=== PATIENT | female | born 1955 | race Caucasian/White ===

== ENCOUNTER 2024-02-28 17:57 | Inpatient (IN) | payer OTHER ==
[~2024-02-28] VITALS: Ht 160 cm; Wt 52.2 kg
[2024-02-28 18:05] VITALS: BP_SYST 104; PULSE 97; RESP 18; TEMP 98.3; O2SAT 98
[2024-02-28 19:46] LABS: BASOPHILS # (AUTO) 0.1 K/uL (0.0-0.2); BASOPHILS % (AUTO) 0.6 % (0.0-2.0); EOSINOPHILS # (AUTO) 0.2 K/uL (0.0-0.4); EOSINOPHILS % (AUTO) 2.8 % (0.0-4.0); HEMATOCRIT 22.3 % (36-48); HEMOGLOBIN 7.7 g/dL (12.0-16.0); LYMPHOCYTES # (AUTO) 2.3 K/uL (1.0-5.5); MEAN CORPUSCULAR HEMOGLOBIN 32 pg (27-31); MEAN CORPUSCULAR HGB CONC 35 % (32-36); MEAN CORPUSCULAR VOLUME 93 fL (79.0-98.0); MONOCYTES # (AUTO) 0.8 K/uL (0.0-1.0); MONOCYTES % (AUTO) 9.1 % (1.7-9.3); NEUTROPHILS # (AUTO) 5.4 K/uL (1.8-7.7); NEUTROPHILS % (AUTO) 61.5 % (40.0-70.0); PLATELET COUNT (AUTO) 347 K/uL (130-430); RED BLOOD CELL COUNT(AUTO) 2.39 MIL/uL (4.2-6.2); RED CELL DISTRIBUTION WIDTH 13.4 % (9.0-15.0); WHITE BLOOD COUNT (AUTO) 8.8 K/uL (4.8-10.8)
[2024-02-28 19:53] LABS: CALCIUM 9.8 mg/dL (8.4-11.0); CREATININE 2.39 mg/dL (0.55-1.30)
[2024-02-28 20:02] LABS: POTASSIUM 6.7 mmol/L (3.5-5.1)
[2024-02-28] MEDS ORDERED: LR 1,000 ML IV ONE (20:15)
[2024-02-28] MEDS ORDERED: SODIUM BICARBONATE 8.4% JECT 150 MEQ in D5W 1,000 ML IVP SCH (20:15)
[2024-02-28] MEDS ORDERED: SODIUM BICARBONATE 8.4% JECT 50 MEQ/50 ML SYRINGE ONE (20:32)
[2024-02-28] MEDS ORDERED: HYDROcodone/ACETAMIN 10-325 MG TAB PO PRN (20:45)
[2024-02-28] MEDS ORDERED: ONDANSETRON HCL 4 MG/2 ML VIAL IVP PRN (20:45)
[2024-02-28] MEDS ORDERED: ACETAMINOPHEN 325 MG TABLET PO PRN ×2 (20:45)
[2024-02-28] MEDS ORDERED: SODIUM BICARBONATE 8.4% JECT 50 MEQ in 0.45% NACL 1,000 ML IVP SCH (20:45)
[2024-02-28] MEDS ORDERED: HYDROcodone/ACETAMIN 5-325 MG TAB (NORCO/ VICODIN) PO PRN (20:45)
[2024-02-28] MEDS: traZODone HCL 50 MG TABLET (DESYREL) PO SCH (21:00)
[2024-02-28] MEDS ORDERED: LORazepam 1 MG TABLET PO PRN (21:00)
[2024-02-28] MEDS: DEXTROSE 50% JECT 50 ML DISP.SYRIN IVP ONE (21:00)
[2024-02-28] MEDS: ATORVASTATIN 20 MG TABLET PO SCH (21:00)
[2024-02-28] MEDS: INSULIN REGULAR, HUMAN 10 UNITS/0.1 ML, 3 ML VIAL IVP ONE (21:09)
[2024-02-28] MEDS: DOCUSATE SODIUM 100 MG CAPSULE PO SCH (21:32)
[2024-02-28] MEDS: SODIUM ZIRCONIUM CYCLOSILICATE 10 GM POWD.PACK PO ONE (21:33)
[2024-02-28] MEDS: SODIUM BICARBONATE 8.4% JECT 50 MEQ in 0.45% NACL 1,000 ML IVP SCH (22:00)
[2024-02-28] MEDS: METOCLOPRAMIDE HCL 10 MG/2 ML VIAL IVP SCH (22:01)
[2024-02-29] VITALS (7 sets, daily range): BP systolic 110–123; PULSE 80–95; RESP 16–20; TEMP 97.3–98.2; O2SAT 97–100
[2024-02-29] MEDS ORDERED: AMLO10TA88 PO (00:36)
[2024-02-29] MEDS ORDERED: ASPI-1393 PO (00:36)
[2024-02-29] MEDS ORDERED: CYCL10TA24 PO (00:36)
[2024-02-29] MEDS ORDERED: LORA-258 PO (00:36)
[2024-02-29] MEDS ORDERED: LISI10TA29 PO (00:36)
[2024-02-29] MEDS ORDERED: MEGE400O6 PO (00:36)
[2024-02-29] MEDS ORDERED: DIVA-74 PO (00:36)
[2024-02-29] MEDS ORDERED: FAMO40TA7 PO (00:36)
[2024-02-29] MEDS ORDERED: ARIP5TAB10 PO (00:36)
[2024-02-29] MEDS ORDERED: FERR325T30 PO (00:36)
[2024-02-29] MEDS ORDERED: TRAZ-251 PO (00:38)
[2024-02-29 09:43] LABS: BASOPHILS # (AUTO) 0.1 K/uL (0.0-0.2); BASOPHILS % (AUTO) 0.5 % (0.0-2.0); EOSINOPHILS # (AUTO) 0.3 K/uL (0.0-0.4); EOSINOPHILS % (AUTO) 2.7 % (0.0-4.0); HEMATOCRIT 22.5 % (36-48); HEMOGLOBIN 7.7 g/dL (12.0-16.0); LYMPHOCYTES # (AUTO) 2.3 K/uL (1.0-5.5); LYMPHOCYTES % (AUTO) 24.3 % (20.5-51.5); MEAN CORPUSCULAR HEMOGLOBIN 32 pg (27-31); MEAN CORPUSCULAR HGB CONC 34 % (32-36); MEAN CORPUSCULAR VOLUME 93 fL (79.0-98.0); MONOCYTES # (AUTO) 0.8 K/uL (0.0-1.0); MONOCYTES % (AUTO) 8.4 % (1.7-9.3); NEUTROPHILS # (AUTO) 6.1 K/uL (1.8-7.7); NEUTROPHILS % (AUTO) 64.1 % (40.0-70.0); PLATELET COUNT (AUTO) 374 K/uL (130-430); RED BLOOD CELL COUNT(AUTO) 2.41 MIL/uL (4.2-6.2); RED CELL DISTRIBUTION WIDTH 13.2 % (9.0-15.0); WHITE BLOOD COUNT (AUTO) 9.5 K/uL (4.8-10.8)
[2024-02-29 09:53] LABS: PROTHROMBIN TIME 10.5 SECS (9.5-12.5)
[2024-02-29 09:54] LABS: TOTAL IRON BIND. CAPACITY 285 ug/dL (250-450)
[2024-02-29 10:06] LABS: ALBUMIN 3.3 g/dL (3.4-4.8); CALCIUM 9.7 mg/dL (8.4-11.0); CREATININE 2.1 mg/dL (0.55-1.30); POTASSIUM 5.5 mmol/L (3.5-5.1); THYROID STIMULATING HORMONE 3.4 uIu/mL (0.36-3.74); TOTAL BILIRUBIN 0.2 mg/dL (0.0-1.0); TOTAL PROTEIN, SERUM 6.9 g/dL (6.4-8.3)
[2024-02-29] MEDS: DULoxetine HCL 30 MG CAPSULE.DR (CYMBALTA) PO SCH (10:08)
[2024-02-29 10:11] LABS: HEMOGLOBIN A1C 4.64 % (<5.7)
[2024-02-29] MEDS ORDERED: ARIP2TAB20 PO (11:15)
[2024-02-29] MEDS: PANTOPRAZOLE SODIUM 40 MG/VIAL (PROTONIX) IVP ONE (16:53)
[2024-02-29] MEDS: traZODone HCL 50 MG TABLET (DESYREL) PO SCH (20:11)
[2024-02-29] MEDS: VALPROIC ACID ORAL SYRUP 250 MG/5 ML UDC PO SCH (20:18)
[2024-02-29] MEDS ORDERED: VALPROATE SODIUM 500 MG in D5W 100 ML IV SCH (21:00)
[2024-02-29] MEDS: LORazepam 2 MG/ML VIAL IVP PRN (23:56)
[2024-03-01 00:46] VITALS: BP_SYST 126; PULSE 104; RESP 17; TEMP 97.5; O2SAT 99
[2024-03-01 07:55] VITALS: BP_SYST 122; PULSE 91; RESP 20; TEMP 97.6; O2SAT 97
[2024-03-01 08:30] VITALS: O2SAT 97
[2024-03-01] MEDS: ASPIRIN 81 MG TAB.CHEW PO SCH (10:27)
[2024-03-01] MEDS: SODIUM POLYSTYRENE SULFONATE 15 GM/60 ML UDBTL PO ONE (10:27)
[2024-03-01] MEDS: BISACODYL 5 MG TABLET.DR (DULCOLAX) PO ONE (10:27)
[2024-03-01] MEDS: FOLIC ACID 1 MG TABLET PO SCH (10:27)
[2024-03-01] MEDS: PANTOPRAZOLE SODIUM 40 MG/VIAL (PROTONIX) IVP SCH (10:47)
[2024-03-01 11:30] VITALS: BP_SYST 125; PULSE 50; RESP 21; TEMP 97.5; O2SAT 95
[2024-03-01] MEDS: SODIUM PHOSPHATE,MONO-DIBASIC 133 ML ENEMA RC ONE (16:13)
[2024-03-01 17:20] VITALS: BP_SYST 126; PULSE 96; RESP 20; TEMP 97.9; O2SAT 96
[2024-03-02 01:19] VITALS: BP_SYST 91; PULSE 89; RESP 17; TEMP 99; O2SAT 92
[2024-03-02] MEDS: SODIUM BICARBONATE 8.4% JECT 50 MEQ in 0.45% NACL 1,000 ML IVP SCH (05:48)
[2024-03-02 07:06] LABS: CALCIUM 7.9 mg/dL (8.4-11.0); CREATININE 1.49 mg/dL (0.55-1.30); POTASSIUM 4.2 mmol/L (3.5-5.1)
[2024-03-02 08:01] LABS: BASOPHILS % (AUTO) 0.6 % (0.0-2.0); EOSINOPHILS # (AUTO) 0.3 K/uL (0.0-0.4); EOSINOPHILS % (AUTO) 4.2 % (0.0-4.0); LYMPHOCYTES # (AUTO) 1.9 K/uL (1.0-5.5); LYMPHOCYTES % (AUTO) 25.5 % (20.5-51.5); MEAN CORPUSCULAR HEMOGLOBIN 32 pg (27-31); MEAN CORPUSCULAR HGB CONC 34 % (32-36); MEAN CORPUSCULAR VOLUME 92 fL (79.0-98.0); MONOCYTES # (AUTO) 0.6 K/uL (0.0-1.0); MONOCYTES % (AUTO) 8.3 % (1.7-9.3); NEUTROPHILS # (AUTO) 4.6 K/uL (1.8-7.7); NEUTROPHILS % (AUTO) 61.4 % (40.0-70.0); PLATELET COUNT (AUTO) 315 K/uL (130-430); RED BLOOD CELL COUNT(AUTO) 2.18 MIL/uL (4.2-6.2); RED CELL DISTRIBUTION WIDTH 13.1 % (9.0-15.0); WHITE BLOOD COUNT (AUTO) 7.4 K/uL (4.8-10.8)
[2024-03-02 08:07] VITALS: BP_SYST 127; PULSE 83; RESP 20; TEMP 97.4; O2SAT 97
[2024-03-02 08:09] VITALS: O2SAT 97
[2024-03-02 08:14] LABS: HEMOGLOBIN 6.9 g/dL (12.0-16.0)
[2024-03-02] MEDS: FOLIC ACID 1 MG TABLET PO SCH (09:00)
[2024-03-02 11:36] VITALS: BP_SYST 113; PULSE 79; RESP 17; TEMP 97.8; O2SAT 96
[2024-03-02 17:27] VITALS: BP_SYST 130; PULSE 78; RESP 18; TEMP 98; O2SAT 94
[2024-03-02 20:00] VITALS: BP_SYST 118; PULSE 82; RESP 17; TEMP 97.8; O2SAT 97
[2024-03-03] VITALS (8 sets, daily range): BP systolic 96–144; PULSE 79–90; RESP 16–20; TEMP 97.6–99; O2SAT 97–100
[2024-03-03 05:22] LABS: BASOPHILS % (AUTO) 0.6 % (0.0-2.0); EOSINOPHILS # (AUTO) 0.4 K/uL (0.0-0.4); EOSINOPHILS % (AUTO) 4.6 % (0.0-4.0); HEMATOCRIT 28.4 % (36-48); HEMOGLOBIN 9.9 g/dL (12.0-16.0); LYMPHOCYTES # (AUTO) 1.7 K/uL (1.0-5.5); LYMPHOCYTES % (AUTO) 21.1 % (20.5-51.5); MEAN CORPUSCULAR HEMOGLOBIN 31 pg (27-31); MEAN CORPUSCULAR HGB CONC 35 % (32-36); MEAN CORPUSCULAR VOLUME 90 fL (79.0-98.0); MONOCYTES # (AUTO) 0.7 K/uL (0.0-1.0); MONOCYTES % (AUTO) 9.1 % (1.7-9.3); NEUTROPHILS # (AUTO) 5.2 K/uL (1.8-7.7); NEUTROPHILS % (AUTO) 64.6 % (40.0-70.0); PLATELET COUNT (AUTO) 311 K/uL (130-430); RED BLOOD CELL COUNT(AUTO) 3.15 MIL/uL (4.2-6.2); RED CELL DISTRIBUTION WIDTH 13.6 % (9.0-15.0)
[2024-03-03 05:48] LABS: CALCIUM 8.9 mg/dL (8.4-11.0); POTASSIUM 4.9 mmol/L (3.5-5.1)
[2024-03-03 05:49] LABS: CREATININE 1.99 mg/dL (0.55-1.30)
[2024-03-03] MEDS ORDERED: FOLI-43 PO (07:57)
[2024-03-03] MEDS: SODIUM PHOSPHATE,MONO-DIBASIC 133 ML ENEMA RC ONE (16:48)
[2024-03-04] VITALS: PULSE 73; RESP 18
[2024-03-04 04:00] VITALS: RESP 18
[2024-03-04 06:32] LABS: BASOPHILS % (AUTO) 0.6 % (0.0-2.0); EOSINOPHILS # (AUTO) 0.3 K/uL (0.0-0.4); EOSINOPHILS % (AUTO) 4.9 % (0.0-4.0); HEMATOCRIT 27.8 % (36-48); HEMOGLOBIN 9.6 g/dL (12.0-16.0); LYMPHOCYTES # (AUTO) 1.6 K/uL (1.0-5.5); LYMPHOCYTES % (AUTO) 23.5 % (20.5-51.5); MEAN CORPUSCULAR HEMOGLOBIN 31 pg (27-31); MEAN CORPUSCULAR HGB CONC 35 % (32-36); MEAN CORPUSCULAR VOLUME 91 fL (79.0-98.0); MONOCYTES # (AUTO) 0.7 K/uL (0.0-1.0); MONOCYTES % (AUTO) 10.5 % (1.7-9.3); NEUTROPHILS # (AUTO) 4.2 K/uL (1.8-7.7); NEUTROPHILS % (AUTO) 60.5 % (40.0-70.0); PLATELET COUNT (AUTO) 273 K/uL (130-430); RED BLOOD CELL COUNT(AUTO) 3.05 MIL/uL (4.2-6.2); RED CELL DISTRIBUTION WIDTH 13.4 % (9.0-15.0); WHITE BLOOD COUNT (AUTO) 6.9 K/uL (4.8-10.8)
[2024-03-04 06:53] LABS: CALCIUM 8.7 mg/dL (8.4-11.0); CREATININE 2.03 mg/dL (0.55-1.30); POTASSIUM 4.6 mmol/L (3.5-5.1)
[2024-03-04 11:06] VITALS: BP_SYST 101; PULSE 90; RESP 16; TEMP 97.4; O2SAT 95
[2024-03-04 11:31] VITALS: BP_SYST 100; PULSE 89; RESP 16; TEMP 97.8; O2SAT 94
[2024-03-04] MEDS ORDERED: MENTHOL/ZINC OXIDE 113 GM OINT. TP PRN (13:45)
[2024-03-04] MEDS ORDERED: CALMO120 TP (14:42)
[2024-03-04 15:36] VITALS: BP_SYST 130; PULSE 86; RESP 20; TEMP 97.7; O2SAT 99
== END 2024-03-04 18:30 | DRG 247 ==
LOC: SED 17:57 → STU 20:34
PROVIDERS: ADMIT Internal Medicine; ATTEND Internal Medicine
PROC: 30233N1 Transfusion of Nonautologous Red Blood Cells into Peripheral Vein, Percutaneous Approach (ICD-10-PCS; principal; 2024-03-02)
DX: K56.7 Ileus, unspecified (principal); N17.0 Acute kidney failure with tubular necrosis; E87.5 Hyperkalemia; I12.9 Hypertensive chronic kidney disease with stage 1 through stage 4 chronic kidney disease, or unspecified chronic kidney disease; N18.30 Chronic kidney disease, stage 3 unspecified; D63.1 Anemia in chronic kidney disease; G40.909 Epilepsy, unspecified, not intractable, without status epilepticus; E03.9 Hypothyroidism, unspecified; Z86.73 Personal history of transient ischemic attack (TIA), and cerebral infarction without residual deficits; Z79.899 Other long term (current) drug therapy
CPT/HCPCS: 36415; 74018; 80048; 80053; 82948; 83037; 83540; 83550; 83735; 84100; 84443; 85025; 85610; 86886; 86900; 86901; 86920; 93005; 93970; 99291; C9113; G0378; J1815; J2060; J2765; J7060; P9021

== ENCOUNTER 2024-03-06 20:13 | Emergency (ER) | payer OTHER ==
[~2024-03-06 20:13] MED LIST: AMLO10TA88 PO; ARIP2TAB20 PO; ASPI-1393 PO; CALMO120 TP; CYCL10TA24 PO; DIVA-74 PO; FAMO40TA7 PO; FERR325T30 PO; FOLI-43 PO; LISI10TA29 PO; LORA-258 PO; MEGE400O6 PO; TRAZ-251 PO
[2024-03-06 20:16] VITALS: BP_SYST 115; PULSE 105; RESP 20; TEMP 98.2; O2SAT 98
[2024-03-06 21:43] VITALS: TEMP 98.3
[2024-03-06 21:51] LABS: BASOPHILS % (AUTO) 0.4 % (0.0-2.0); EOSINOPHILS # (AUTO) 0.3 K/uL (0.0-0.4); EOSINOPHILS % (AUTO) 4.5 % (0.0-4.0); HEMATOCRIT 26.1 % (36-48); HEMOGLOBIN 9.1 g/dL (12.0-16.0); LYMPHOCYTES # (AUTO) 1.5 K/uL (1.0-5.5); LYMPHOCYTES % (AUTO) 25.2 % (20.5-51.5); MEAN CORPUSCULAR HEMOGLOBIN 32 pg (27-31); MEAN CORPUSCULAR HGB CONC 35 % (32-36); MEAN CORPUSCULAR VOLUME 91 fL (79.0-98.0); MONOCYTES # (AUTO) 0.6 K/uL (0.0-1.0); MONOCYTES % (AUTO) 10.4 % (1.7-9.3); NEUTROPHILS # (AUTO) 3.7 K/uL (1.8-7.7); NEUTROPHILS % (AUTO) 59.5 % (40.0-70.0); PLATELET COUNT (AUTO) 225 K/uL (130-430); RED BLOOD CELL COUNT(AUTO) 2.86 MIL/uL (4.2-6.2); RED CELL DISTRIBUTION WIDTH 13.1 % (9.0-15.0); WHITE BLOOD COUNT (AUTO) 6.1 K/uL (4.8-10.8)
[2024-03-06 21:57] LABS: ANION GAP 11 (5-15); CALCIUM 8.8 mg/dL (8.4-11.0); CARBON DIOXIDE 20 mmol/L (23-29); CHLORIDE 107 mmol/L (98-107); CREATININE 2.37 mg/dL (0.55-1.30); GFR AFRICAN AMERICAN 26 mL/min (>90); GLUCOSE 157 mg/dL (74-106); POTASSIUM 5.2 mmol/L (3.5-5.1); SODIUM SERUM 138 mmol/L (136-145); UREA NITROGEN, BLOOD 51 mg/dL (8-21)
[2024-03-06 22:03] LABS: INR 0.9 (0.8-1.2); PROTHROMBIN TIME 9.6 SECS (9.5-12.5)
[2024-03-06 22:04] LABS: GFR NON AFRICAN-AMERICAN 22 mL/min (>90)
[2024-03-06 22:05] LABS: CREATINE KINASE, TOTAL 41 U/L (26-192)
[2024-03-06 22:33] LABS: BILIRUBIN,URINE NEGATIVE (NEGATIVE); BLOOD, URINE NEGATIVE (NEGATIVE); CLARITY/URINE CLEAR (CLEAR); COLOR,URINE YELLOW (YELLOW); GLUCOSE,URINE NEGATIVE (NEGATIVE); KETONES,URINE NEGATIVE (NEGATIVE); LEUKOCYTE ESTERASE ,URINE NEGATIVE (NEGATIVE); NITRITE, URINE NEGATIVE (NEGATIVE); PROTEIN URINE NEGATIVE (NEGATIVE); UROBILINOGEN,URINE 0.2 (0.2-1.0)
[2024-03-06 22:50] LABS: BARBITURATE, URINE NEGATIVE (NEG <=200); BENZODIAZEPINE, URINE POSITIVE (NEG <=150); CANNABINOID, URINE NEGATIVE (NEG <=50); COCAINE, URINE NEGATIVE (NEG <=150); METHAMPHETAMINES SCREEN,URINE NEGATIVE (NEG <=500); OPIATE, URINE NEGATIVE (NEG <=100); PHENCYCLIDINE SCREEN,URINE NEGATIVE (NEG <=25); UR TRICYCLIC ANTIDEPRESSANTS NEGATIVE (NEG <=300); URINE AMPHETAMINE NEGATIVE (NEG <=500); URINE METHADONE NEGATIVE (NEG <=200); URINE OXYCODONE SCREEN NEGATIVE (NEG <=100)
[2024-03-06] MEDS: levETIRAcetam 1,000 MG IV BAG 100 ML IV ONE (23:34)
[2024-03-07] MEDS: NACL 0.9% 1,000 ML IV ONE (00:50)
[2024-03-07] MEDS ORDERED: LEVE500T9 PO (01:33)
[2024-03-07 01:42] VITALS: BP_SYST 124; PULSE 91; RESP 15; O2SAT 97
== END 2024-03-07 01:42 ==
LOC: SED 20:13
DX: E86.0 Dehydration (principal); R45.1 Restlessness and agitation; R56.9 Unspecified convulsions; I10 Essential (primary) hypertension; Z20.822 Contact with and (suspected) exposure to COVID-19
CPT/HCPCS: 99285; 96365; 70450; 71045; 87426; 80307; 80048; 81001; 82140; 82550; 85025; 85610; 85730; 87040; 87086; 84484; 36415; 93005; 83605; 81003; 96361; G0482; J1953; J7030